=== PATIENT | female | born 1985 | race Hispanic/Latino ===

== ENCOUNTER → 2024-06-13 10:05 | Outpatient (REF) | payer BC, SELFPAY ==
--- NOTE | 2024-06-13 10:25 | PN.DIAED06 ---
Meal Plan - Gestational
- Breakfast
Gestational Diabetes Meal Plan Name: 1800 calories
Breakfast - Total Carbohydrate (grams): 30
Breakfast - Starch Carbohydrate: 1
Breakfast - Fruit Carbohydrate: 0
Breakfast - Milk Carbohydrate: 1
Breakfast - Nonstarchy Vegetables: Yes
Breakfast - Meat/Protein: 1
Breakfast - Fat: 2
- Morning Snack
Morning Snack - Total Carbohydrate (grams): 30
Morning Snack - Starch Carbohydrate: 1
Morning Snack - Fruit Carbohydrate: 0
Morning Snack - Milk Carbohydrate: 1
Morning Snack - Nonstarchy Vegetables: Yes
Morning Snack - Meat/Protein: 0.5
Morning Snack - Fat: 0
- Lunch
Lunch - Total Carbohydrate (grams): 45
Lunch - Starch Carbohydrate: 2
Lunch - Fruit Carbohydrate: 1
Lunch - Milk Carbohydrate: 0
Lunch - Nonstarchy Vegetables: Yes
Lunch - Meat/Protein: 2
Lunch - Fat: 1
- Afternoon Snack
Afternoon Snack - Total Carbohydrate (grams): 30
Afternoon Snack - Starch Carbohydrate: 1
Afternoon Snack - Fruit Carbohydrate: 1
Afternoon Snack - Milk Carbohydrate: 0
Afternoon Snack - Nonstarchy Vegetables: Yes
Afternoon Snack - Meat/Protein: 1
Afternoon Snack - Fat: 0
- Dinner
Dinner - Total Carbohydrate (grams): 45
Dinner - Starch Carbohydrate: 2
Dinner - Fruit Carbohydrate: 0
Dinner - Milk Carbohydrate: 1
Dinner - Nonstarchy Vegetables: Yes
Dinner - Meat/Protein: 2
Dinner - Fat: 2
- Evening Snack
Evening Snack - Total Carbohydrate (grams): 30
Evening Snack - Starch Carbohydrate: 1
Evening Snack - Fruit Carbohydrate: 0
Evening Snack - Milk Carbohydrate: 1
Evening Snack - Nonstarchy Vegetables: Yes
Evening Snack - Meat/Protein: 1
Evening Snack - Fat: 1
--- NOTE | 2024-06-13 11:59 | PN.DE ---
Diabetes Education
- -
Vonda presented with her and 3 year old daughter for medical nutritional therapy. This is her 3rd and she is 31 weeks gestation. She also has a 4 year old daughter and denied having gestational diabetes with either .
[place]i translation services were used via [employer]; machine operator farmworker ID: [id number]. I explained glucose metabolism and what occurs during that leads to increased blood glucose levels. I discussed importance of keeping blood glucose well
controlled to avoid complications to the baby during and after . I also discussed that Vonda is at an increased risk of developing T2DM in the future.
Vonda purchased an over the counter Thomas-Krenn glucometer and has been monitoring her numbers at home. She stated she has been eating a lot of fruit and a few of her numbers fasting are greater than 100 mg/dL. I reviewed the proper technique for
cleaning her hands before monitoring her fingerstick and demonstrated use of the OneTouch verio flex glucometer. Prescriptions for the Onetouch meter will be sent to her pharmacy but I encouraged her to keep using her own meter until she receives
the new one. I reviewed the monitoring scheduled and highlighted target glucose ranges for fasting and 2 hours post meal. I provided written information in [place]i to reinforce glucose monitoring and target glucose ranges.
I provided Vonda with a 1800 calorie gestational meal plan. I reviewed basic macronutrients and reading the food label. The meal plan with potential meal/snack options were reviewed in detail and Vonda wrote her own notes in [place]i. I provided
[place] material on carbohydrate counting and basic nutrition. I encouraged Vonda to increase her activity with walking in order to help lower glucose levels. Vonda verbalized understanding of the meal plan and will plan to send glucose readings
every Tuesday to Terese at [facility]. I encouraged her to reach out with any questions or if she should require insulin.
== END ==
LOC: DES 10:05
PROVIDERS: ATTENDING PHYSICIAN Obstetrics & Gynecology
DX: O24.419 Gestational diabetes mellitus in pregnancy, unspecified control (principal)
CPT/HCPCS: 99078

== ENCOUNTER → 2024-07-19 15:06 | Outpatient (REF) | payer BC, SELFPAY | LOC: PNTC 15:06 | PROVIDERS: ATTENDING PHYSICIAN Obstetrics & Gynecology | DX: O09.529 Supervision of elderly multigravida, unspecified trimester (principal) | CPT/HCPCS: 59025 ==

== ENCOUNTER → 2024-07-26 10:58 | Outpatient (REF) | payer BC, SELFPAY | LOC: PNTC 10:58 | PROVIDERS: ATTENDING PHYSICIAN Obstetrics & Gynecology | DX: O09.529 Supervision of elderly multigravida, unspecified trimester (principal) | CPT/HCPCS: 59025; 76815 ==

== ENCOUNTER 2024-07-28 22:30 | Inpatient (IN) | payer BC, SELFPAY ==
[2024-07-28 22:40] VITALS: BMI 26.4
[2024-07-28 22:57] LABS: Glucose - Point of Care 92 mg/dl (70-99)
[2024-07-28 23:10] VITALS: BP 113/80
--- NOTE | 2024-07-28 23:23 | HPS.HSE ---
Family Physician
-
Family Physician: INTERVIEWE UNKNOWN - PT NOT
Chief Complaint
-
contractions
History of Present Illness
HPI: Patient is a 39yo @37.4 who presents with complaints of contractions. She reports contractions started this morning and were every 20 minutes. Over the last couple hours they got closer together and are now every 5 minutes. She denies
VB or LOF. +FM.
complications:
- GDMA1
- Daughter w/ hypoplastic left heart, echo normal
- Advanced maternal age
- EFW 90%tile
PMHx: depression
Meds: PNV
Surghx: denies
NKDA
Socialhx: denies tobacco, etoh or illicit
Famhx: daughter w/ hypoplastic left heart
OBHx: SVDx2
labs: Blood type O+, Ab neg, Pap NILM neg HPV, Rubella immune, RPR nonreactive, UCx neg, HBsAg neg, HIV neg, GCCT neg, Hep C neg, A1C 5.5, 1hr 167, 3hr wnl, GBS neg
Medical History
Past Medical History
Past Medical History: Reports Psychiatric
Additional Past Medical History:
depression
Past Surgical History: Reports None
Social History
Tobacco: Non-smoker
Alcohol: None
Drug: None
Family History
Family History: Other (daughter w/ hypoplastic left heart)
Allergies / Home Medications
Allergies reflects when Allergies were last updated in [facility].
Home Medications with original date entered in [facility]
Allergy/Medication List:
NKDA
Meds: PNV
Review of Systems
-
A 12 point ROS was completed and negative except as noted: Yes
Physical Exam
Vital Signs
Vital Signs
Temp Pulse Resp BP Pulse Ox
98.8 F 89 18 113/80 100
07/28/24 23:10 07/28/24 23:10 07/28/24 23:10 07/28/24 23:10 07/28/24 23:10
Physical Exam
General: Well Developed and Well Nourished
HEENT: NormoCephalic
Respiratory: Non Labored Respirations
Cardiac: Regular Rhythm
Genito-urinary: Other (SVE: 6-7/90/-2, intact, feet palpated in the vagina; breech presentation confirmed by BSUS)
Skin: Warm
Neuro: Awake, Alert and Oriented
Psych: Calm
Impression/Plan
-
IMPRESSION:
Patient is a 39yo @37.4 labor, breech presentation
PLAN:
- Patient 6-7cm on arrival with feet palpated in the vagina. Breech presentation confirmed by BSUS. Reviewed need to proceed with urgent primary section. Risks, benefits and alternatives discussed including bleeding, infection, damage to
surrounding structures, and need for future operations. Patient consented for a blood transfusion in case of emergency. Consents signed
- Anesthesia notified
- Ancef 2g and azithromycin 500mg IV ordered for antibiotic prophylaxis
spanish interpreter/translator used for encounter
[2024-07-28] MEDS: ANCEF 10 IV (23:25)
[2024-07-28] MEDS: TYLENOL 1000 MG PO (23:25)
[2024-07-28] MEDS: BICITRA 30 ML PO (23:25)
[2024-07-28] MEDS: LR 1000 IV (23:26)
[2024-07-28 23:43] LABS: Hematocrit 34.3 % (37.0-47.0); Hemoglobin 11.7 g/dL (12.0-16.0); Mean Corp Hgb Conc. 34.1 g/dL (33.0-37.0); Mean Corpuscular Hgb 30.5 pg (27.0-31.0); Mean Corpuscular Volume 89.6 fL (81.0-99.0); Mean Platelet Volume 12.4 fL (7.4-10.4); Platelet Count 255 10^3/uL (130-400); Red Blood Cell Count 3.83 10^6/uL (4.20-5.40); Red Cell Dist. Width 15.7 % (11.5-14.5); White Blood Cell Count 7.7 10^3/uL (4.8-10.8)
--- NOTE | 2024-07-29 01:03 | OR.RPT ---
Addendum entered and electronically signed by Rosenda Mendes DO 07/29/24 02:01:
Patient had a female
Original Note:
Operative Report
Operative Report
Date of procedure: 07/28/24
Preop diagnosis: IUP @37.4, breech presentation, labor, GDMA1
Postop diagnosis: same
Procedure: Primary low transverse section
Surgeon: Cinthya
Anesthesia: Spinal, Katin
QBL: 690mL
Findings: Viable male born from breech presentation at 2355, Apgars 9/9. 3cm fundal pedunculated fibroid. Normal appearing bilateral fallopian tubes and ovaries.
Thomson catheter draining clear urine before and after the procedure
Complications: none
Indication: Patient is a 39yo @37.4 who presented to Labor and Delivery with complaints of contractions. She was found to be 6-7cm with feet palpated in the vagina. Breech presentation was confirmed by bedside ultrasound. Decision was made
to proceed with urgent primary section. Risks, benefits, and alternatives were discussed and all questions answered. Anesthesia was notified.
Procedure: Patient was taken to the operating room where spinal anesthesia was administered and found to be adequate. 2g of Ancef and 500mg of Azithromycin were given for infection prophylaxis. The abdomen was prepped with ChloraPrep. The patient
was draped in the normal sterile fashion. She was placed in the dorsal supine position with a left lateral tilt. A Pfannenstiel incision was made with a 10 blade and carried down to the fascia with a scalpel. Hemostasis achieved with Bovie. The
fascia was incised and dissected laterally with David scissors. The superior aspect of the fascia was grasped with Jan clamps. The underlying rectus fascia was sharply dissected with David scissors. In a similar fashion the inferior aspect of the
fascia was elevated with Jan clamps and the rectus muscle was dissected off with David scissors. The rectus muscles were down the midline to the level of the pubic symphysis with manual dissection. The peritoneum was bluntly entered and
extended with manual traction.
Mueller retractor and bladder blade were placed revealing good visualization of the bladder. The vesicouterine peritoneum was identified. A thin lower uterine segment was noted. The lower uterine segment was incised with a scalpel. Clear amniotic
fluid noted at entry into the cavity. The uterine incision was extended bluntly with lateral and upward traction.
The fetus was in footling breech presentation. The feet were palpated and delivered gradually through the hysterotomy. Gentle fundal pressure was applied and the legs and body gradually delivered. Once the scapula could be seen, the baby was
gently rotated and both arms were delivered using the Lovset maneuver. Maintaining head flexion, the head delivered spontaneously. Delayed cord clamping was performed. The was handed off to the business office specialist. IV oxytocin was started to
facilitate uterine contractions. The placenta was manually extracted. The uterus was exteriorized. Allis clamps were placed at the apices of the hysterotomy. The inside of the uterus was wiped with a lap sponge to assure complete removal of
placental membranes. Fundal massage was performed and uterus noted to be firm. The uterine incision was closed with 0 Vicryl in a running locked fashion. A horizontal imbricating stitch was done on the hysterotomy. The hysterotomy was inspected and
noted to be hemostatic. There was oozing noted from the serosa on the posterior fundus of the uterus. Bovie cautery used to achieve hemostasis. The uterus was placed back in the abdomen. Blood clots and fluid were wiped out of the abdomen and pelvis
with moist laparotomy sponges. The hysterotomy was examined again and was hemostatic.
The rectus muscles were inspected and noted to be hemostatic. The fascial layer was closed in a running continuous fashion using 0 Vicryl. The subcutaneous tissue was copiously irrigated and any small bleeding vessels were cauterized with Bovie
cautery. The subcutaneous tissue was reapproximated in a running continuous fashion with 2-0 Plain. The skin was closed with 4-0 Vicryl in a subcuticular fashion. The incision was covered with skin glue and a pressure dressing. The patient tolerated
the procedure well. All sponge and instrument counts were correct times two. The patient was taken to the recovery room in stable condition.
[2024-07-29] MEDS: ZITHROMAX INFUSION 250 IV (01:45)
[2024-07-29] MEDS: TORADOL 15 MG IV ×4 (06:03→23:50)
[2024-07-29] MEDS: PRENATAL PLUS 1 TABLET PO (07:54)
[2024-07-29 09:59] LABS: Mean Corp Hgb Conc. 32.4 g/dL (33.0-37.0); Mean Corpuscular Hgb 30.2 pg (27.0-31.0); Mean Corpuscular Volume 93.4 fL (81.0-99.0); Mean Platelet Volume 12.1 fL (7.4-10.4); Platelet Count 202 10^3/uL (130-400); Red Blood Cell Count 3.64 10^6/uL (4.20-5.40); Red Cell Dist. Width 15.7 % (11.5-14.5); White Blood Cell Count 9.8 10^3/uL (4.8-10.8)
--- NOTE | 2024-07-29 10:24 | W.PN.ANS.POP ---
Anesthesia Post Operative
- Anesthesia Post Op Note
Vital Signs Stable-See Nursing Note: Yes
Airway Patent: Yes
Adequate Pain Control: Yes
Change in Mental Status: No
Current Postoperative Nausea & Vomiting: No
Anesthesia Complications: No
General Anesthetic Recall: No
Unplanned Admission: No
Post Op Hydration Adequate: Yes
- -
Pt awake and alert, no anesthesia related c/o at time of post op visit. Pt doing well as per RN.
[2024-07-30] MEDS: MOTRIN 600 MG PO ×3 (08:52→21:45)
[2024-07-30] MEDS: TYLENOL 650 MG PO ×3 (08:52→21:45)
[2024-07-30] MEDS: PRENATAL PLUS 1 TABLET PO (08:52)
[2024-07-31] MEDS: MOTRIN 600 MG PO (05:46)
[2024-07-31] MEDS: TYLENOL 650 MG PO (05:46)
[2024-07-31] MEDS: PRENATAL PLUS 1 TABLET PO (08:00)
[2024-07-31 12:18] LABS: Syphilis/T. pallidum Ab Reflex Negative (Negative)
== END 2024-07-31 12:44 | disposition home or self-care (01) | DRG 788 ==
LOC: LDRP 22:30
PROVIDERS: ADMITTING PHYSICIAN Obstetrics & Gynecology; ATTENDING PHYSICIAN Student in an Organized Health Care Education/Training Program
PROC: 10D00Z1 Extraction of Products of Conception, Low, Open Approach (ICD-10-PCS; 2024-07-29)
DX: O32.8XX0 Maternal care for other malpresentation of fetus, not applicable or unspecified (principal); O24.420 Gestational diabetes mellitus in childbirth, diet controlled; Z3A.37 37 weeks gestation of pregnancy; Z37.0 Single live birth
CPT/HCPCS: 36415; 82962; 85027; 86780; 86850; 86900; 86901; 87045; 87046; 87324; 87427; 87449; 89055

== ENCOUNTER → 2024-09-17 09:21 | Outpatient (REF) | payer BC, SELFPAY | LOC: WDC 09:21 | PROVIDERS: ATTENDING PHYSICIAN Student in an Organized Health Care Education/Training Program | DX: N63.20 Unspecified lump in the left breast, unspecified quadrant (principal) | CPT/HCPCS: 76642 ==